=== PATIENT | male | born 1945 | race Caucasian/White ===

== ENCOUNTER → 2020-01-21 | Outpatient (CLI) | payer OTHER ==
[~2020-01-21] MED LIST: ACETAMINOPHEN325 M1 OR; ASA81BEC OR; CARISOPRODOL 3350 M1 OR; CENTRUM TABLET1 TAB OR; CLARITIN10 MG OR; DILTIAZEM 24HR300 M1 OR; FISHOIL OR; HYDROCHLOROTHIA25 M1 OR; HYDROCODON-ACE1 EAC7 PO; IRON OR; MOBIC15 MG OR; ZOCOR80 MG OR; ZOFRAN ODT4 MG PO; [UNRECOGNIZED DRUG - OTHER] OR
== END ==
LOC: RAD 11:24
DX: N62 Hypertrophy of breast (principal)

== ENCOUNTER 2020-08-06 14:17 | Emergency (ER) | payer OTHER ==
[~2020-08-06] VITALS: Ht 172.7 cm; Wt 88.5 kg
[2020-08-06] MEDS ORDERED: HYDROCHLOROTHIA25 M2 PO (14:44)
[2020-08-06] MEDS ORDERED: DILTIAZEM ER180 M2 PO ×2 (14:44)
[2020-08-06] MEDS ORDERED: LIPITOR 20 MG T20 M1 PO (14:44)
[2020-08-06] MEDS ORDERED: VITAMIN C500 M1 PO (14:45)
[2020-08-06] MEDS ORDERED: TRAMADOL 50 MG50 MG PO (14:45)
[2020-08-06 15:01] LABS: HEMATOCRIT 40.4 % (42.0-52.0); HEMOGLOBIN 13.9 gm/dL (14.0-18.0); MCH 29.4 pg (26.0-34.0); MCHC 34.5 g/dL (28.0-37.0); MCV 85.2 fL (80.0-100.0); PLATELET COUNT 144 thou/uL (150-400); RBC 4.74 mil/uL (4.50-6.00); RDW 13.2 % (10.5-14.5)
[2020-08-06 15:18] LABS: ANION GAP 13 mmol/L (7-16); BUN 17 mg/dL (7-18); CALCIUM 8.6 mg/dL (8.5-10.1); CHLORIDE 102 mmol/L (98-107); CO2 24 mmol/L (21-32); CREATININE 1.4 mg/dL (0.7-1.3); GLUCOSE 127 mg/dL (74-106); POTASSIUM 3.2 mmol/L (3.5-5.1); SODIUM 139 mmol/L (136-145)
[2020-08-06 15:27] LABS: ALBUMIN 3.8 g/dL (3.4-5.0); SGOT 39 U/L (15-37); SGPT 67 U/L (30-65); TOTAL BILIRUBIN 0.4 mg/dL (0.2-1.0); TOTAL PROTEIN 7.6 g/dL (6.4-8.2); TROPONIN-I <0.06 ng/mL (<0.06)
[2020-08-06 15:34] LABS: URINE BILIRUBIN NEGATIVE (Negative); URINE BLOOD NEGATIVE (Negative); URINE CLARITY CLEAR; URINE COLOR YELLOW; URINE GLUCOSE-RANDOM* NEGATIVE (Negative); URINE KETONES NEGATIVE (Negative); URINE LEUKOCYTES-REFLEX 1+ (Negative); URINE NITRITE-REFLEX NEGATIVE (Negative); URINE PROTEIN (DIPSTICK) NEGATIVE (Negative); URINE UROBILINOGEN 0.2 E.U./dl (0.2-1.0)
[2020-08-06 15:49] LABS: ABSOLUTE NEUTROPHILS 2.9 thou/uL (1.4-8.2)
[2020-08-06 15:52] LABS: BACTERIA-REFLEX 1-9 Few /HPF (None Seen); CASTS None Seen /LPF (None Seen); CRYSTALS None Seen /LPF (None Seen); SQUAMOUS None Seen /LPF (0-3); URINE RBC 0-2 Rare /HPF (0-2); URINE WBC-REFLEX 0-5 Rare /HPF (0-5)
[2020-08-06] MEDS ORDERED: AUGMENTIN 500-1 EACH PO (16:17)
[2020-08-06] MEDS ORDERED: POTASSIUM20 PO (16:17)
[2020-08-06 16:31] VITALS: BP 124/85
--- NOTE | 2020-08-07 16:42 | EKG ---
[facility] [place] [address] ELECTROCARDIOGRAM REPORT Name: STEPHANY MEJIA Room #: DEP M.R.#: [id number] Admission: 08/06/20 Attend Phys: Discharge: 08/06/20 Date of : 49 Report #: [id number] THIS REPORT FOR: cc: Femi Anderson Steven F. DO Lundgren, Craig H. MD [facility] THIS REPORT FOR: //name// [facility] ED Test Date: 2020-08-06 Test Time: 14:35:01 Pat Name: STEPHANY MEJIA Department: Room: Gender: Dry Heat Room Attendant: : 1945 Requested By: Oneyda Beebe Order Number: [id number] MD: Mulugeta Brock Measurements Intervals [place] Rate: 108 P: 36 GA: 136 QRS: -66 QRSD: 138 T: 0 QT: 339 QTc: 455 Interpretive Statements Sinus tachycardia Leftward axis Right bundle branch block Compared to ECG 09/07/2010 09:27:52 Right bundle-branch block now present Electronically Signed On 08-07-2020 16:42:43 CDT by Mulugeta Brock [email or web address] <ELECTRONICALLY SIGNED> By: Mulugeta Brock MD, [facility] 08/07/20 1642 1435 1435 Mulugeta Brock MD, [facility] /EPI
== END 2020-08-06 16:41 | disposition home or self-care (01) ==
LOC: ER 14:17
PROVIDERS: Physician Assistant
DX: U07.1 COVID-19 (principal); R50.9 Fever, unspecified; N39.0 Urinary tract infection, site not specified; E87.6 Hypokalemia; I10 Essential (primary) hypertension; E78.5 Hyperlipidemia, unspecified; Z79.899 Other long term (current) drug therapy; Z79.82 Long term (current) use of aspirin; Z88.1 Allergy status to other antibiotic agents; Z88.2 Allergy status to sulfonamides; Z88.8 Allergy status to other drugs, medicaments and biological substances; Z87.891 Personal history of nicotine dependence

== ENCOUNTER 2020-08-07 18:50 | Emergency (ER) | payer OTHER ==
[~2020-08-07] VITALS: Ht 172.7 cm; Wt 87.5 kg
[~2020-08-07 18:50] MED LIST changes: +AUGMENTIN 500-1 EACH PO; +DILTIAZEM ER180 M2 PO; +HYDROCHLOROTHIA25 M2 PO; +LIPITOR 20 MG T20 M1 PO; +POTASSIUM20 PO; +TRAMADOL 50 MG50 MG PO; +VITAMIN C500 M1 PO
[2020-08-07 19:29] VITALS: BP 127/76
== END 2020-08-07 19:43 | disposition home or self-care (01) ==
LOC: ER 18:50
DX: R50.9 Fever, unspecified (principal); J02.9 Acute pharyngitis, unspecified; R05 Cough; I10 Essential (primary) hypertension; E78.5 Hyperlipidemia, unspecified; Z79.899 Other long term (current) drug therapy; Z88.8 Allergy status to other drugs, medicaments and biological substances; Z87.891 Personal history of nicotine dependence; Z79.82 Long term (current) use of aspirin; Z88.2 Allergy status to sulfonamides; Z88.1 Allergy status to other antibiotic agents

== ENCOUNTER → 2021-03-21 | Outpatient (CLI) | payer OTHER | LOC: MRI 14:12 | PROVIDERS: ATTEND Neurological Surgery | DX: M51.26 Other intervertebral disc displacement, lumbar region (principal); M48.07 Spinal stenosis, lumbosacral region; M25.78 Osteophyte, vertebrae; R29.890 Loss of height; M47.817 Spondylosis without myelopathy or radiculopathy, lumbosacral region ==

== ENCOUNTER 2021-05-20 15:01 | Emergency (ER) | payer OTHER ==
[~2021-05-20] VITALS: Ht 172.7 cm; Wt 90.3 kg
[2021-05-20] MEDS ORDERED: DORYX MPC120 MG PO (18:17)
[2021-05-20] MEDS ORDERED: NORCO5 PO (18:17)
[2021-05-20 18:38] VITALS: BP 120/70
== END 2021-05-20 18:39 | disposition home or self-care (01) ==
LOC: ER 15:01
DX: S62.634B Displaced fracture of distal phalanx of right ring finger, initial encounter for open fracture (principal); I10 Essential (primary) hypertension; Z98.52 Vasectomy status; Z79.82 Long term (current) use of aspirin; Z79.899 Other long term (current) drug therapy; Z87.891 Personal history of nicotine dependence; Z88.0 Allergy status to penicillin; Z88.2 Allergy status to sulfonamides; Z72.89 Other problems related to lifestyle; W28.XXXA Contact with powered lawn mower, initial encounter; Y92.096 Garden or yard of other non-institutional residence as the place of occurrence of the external cause; Y93.H2 Activity, gardening and landscaping; Y99.8 Other external cause status

== ENCOUNTER 2021-05-22 07:19 | Emergency (ER) | payer OTHER ==
[~2021-05-22] VITALS: Ht 172.7 cm; Wt 90.3 kg
[~2021-05-22 07:19] MED LIST changes: +DORYX MPC120 MG PO; +NORCO5 PO
[2021-05-22 07:26] VITALS: BP 139/102
== END 2021-05-22 07:47 | disposition home or self-care (01) ==
LOC: ER 07:19
DX: S61.314D Laceration without foreign body of right ring finger with damage to nail, subsequent encounter (principal); X58.XXXD Exposure to other specified factors, subsequent encounter; S62.634D Displaced fracture of distal phalanx of right ring finger, subsequent encounter for fracture with routine healing; I10 Essential (primary) hypertension; Z98.890 Other specified postprocedural states; Z79.899 Other long term (current) drug therapy; Z87.891 Personal history of nicotine dependence; Z88.1 Allergy status to other antibiotic agents; Z88.2 Allergy status to sulfonamides